=== PATIENT | male | born 1950 | race Caucasian/White ===

== ENCOUNTER 2016-10-17 12:50 | Outpatient (RCR) | payer MEDICARE, OTHER | END 2017-01-15 | disposition home or self-care (01) | LOC: WSST | DX: R13.12 Dysphagia, oropharyngeal phase (principal) | CPT/HCPCS: G8996-GN; G8997-GN; G8998-GN ==

== ENCOUNTER → 2016-11-20 | Outpatient (CLI) | payer MEDICARE, OTHER | LOC: COL.RAD 11-06 11:00 | DX: R13.12 Dysphagia, oropharyngeal phase (principal) | CPT/HCPCS: G8996-GN; G8997-GN; G8998-GN; G9186-GN ==

== ENCOUNTER → 2020-03-29 | Outpatient (CLI) | payer MEDICARE, OTHER | LOC: COL.VAS 12:45 | DX: R06.02 Shortness of breath (principal) ==